=== PATIENT | female | born 2000 | race Two or more races ===

== ENCOUNTER 2024-04-26 17:36 | Emergency (ER) | payer OTHER, SELFPAY ==
[2024-04-26 18:20] VITALS: BP 116/76; PULSE 78; RESP 18; TEMP 37.1; O2SAT 99
[2024-04-26 18:21] VITALS: BMI 21.9
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
== END 2024-04-26 18:47 | disposition home or self-care (01) ==
LOC: SERX 18:37
PROVIDERS: Emergency Provider Emergency Medicine; PCP Family Medicine
DX: M25.512 Pain in left shoulder (principal); V89.2XXA Person injured in unspecified motor-vehicle accident, traffic, initial encounter
CPT/HCPCS: 99283